=== PATIENT | female | born 1970 | race Caucasian/White ===

== ENCOUNTER 2020-11-30 06:28 | Day surgery (SDC) | payer OTHER ==
[~2020-11-30] VITALS: Ht 154.9 cm; Wt 85.0 kg
[2020-11-30] MEDS ORDERED: LIDOCAINE 2% 30 ML JELLY TP ONE (06:29)
[2020-11-30] MEDS ORDERED: ALBUTEROL SULFATE 2.5 MG/0.5 ML NEB SOLUTION NEB ONE (06:29)
[2020-11-30] MEDS ORDERED: BENZOCAINE 20% 50 MCG/SPRAY 57 GM TP ONE (06:29)
[2020-11-30] MEDS ORDERED: SODIUM CHLORIDE 0.9% 1,000 ML ONE (06:39)
[2020-11-30] MEDS ORDERED: FentaNYL CITRATE PF 100 MCG/2 ML VIAL ONE (07:38)
[2020-11-30] MEDS ORDERED: MIDAZOLAM HCL 2 MG/2 ML VIAL ONE (07:38)
[2020-11-30] MEDS ORDERED: ARIP2TAB27 PO (08:00)
[2020-11-30] MEDS ORDERED: BACL10TA PO (08:00)
[2020-11-30] MEDS ORDERED: ALBU8HFA IH (08:00)
[2020-11-30] MEDS ORDERED: SODIUM CHLORIDE 0.9% 1,000 ML IV ONE (08:00)
[2020-11-30] MEDS ORDERED: HYD50 PO (08:09)
[2020-11-30] MEDS ORDERED: IPRA4AER IH (08:09)
[2020-11-30] MEDS ORDERED: PREG75 PO (08:09)
[2020-11-30] MEDS ORDERED: SACU1TAB PO (08:09)
[2020-11-30] MEDS ORDERED: FLUT16H NASAL (08:09)
[2020-11-30] MEDS ORDERED: BUSP15 PO (08:09)
[2020-11-30] MEDS ORDERED: HYDR-4072 PO (08:09)
[2020-11-30] MEDS ORDERED: FLUT1BLS IH (08:09)
[2020-11-30] MEDS ORDERED: UMEC62.5 PO (08:09)
[2020-11-30] MEDS ORDERED: NIZO2SH TP (08:09)
[2020-11-30] MEDS ORDERED: PROM118S5 PO (08:09)
[2020-11-30] MEDS ORDERED: BETA50CR5 TP (08:09)
[2020-11-30] MEDS ORDERED: FURO40 PO (08:09)
[2020-11-30] MEDS ORDERED: HYDR200T83 PO (08:09)
[2020-11-30] MEDS ORDERED: PRED10 PO (08:09)
[2020-11-30] MEDS ORDERED: DULO-8 PO (08:09)
[2020-11-30] MEDS ORDERED: CARV25 PO (08:09)
[2020-11-30] MEDS ORDERED: MONT-35 PO (08:09)
[2020-11-30] MEDS ORDERED: FAMO20 PO (08:09)
[2020-11-30] MEDS ORDERED: MethylPREDNISolone SOD SUCC 125 MG/2 ML VIAL IVP ONE (09:30)
[2020-11-30] MEDS ORDERED: MethylPREDNISolone SOD SUCC 125 MG/2 ML VIAL ONE (09:53)
[2020-11-30] MEDS ORDERED: OXYGEN THERAPY IH SCH (20:00)
== END 2020-11-30 11:40 | disposition home or self-care (01) ==
LOC: SURGERY 06:28
PROVIDERS: ATTEND Internal Medicine Critical Care Medicine
DX: J38.4 Edema of larynx (principal); B37.0 Candidal stomatitis; F17.210 Nicotine dependence, cigarettes, uncomplicated; J44.9 Chronic obstructive pulmonary disease, unspecified; I42.9 Cardiomyopathy, unspecified; I50.9 Heart failure, unspecified; K21.9 Gastro-esophageal reflux disease without esophagitis; M19.90 Unspecified osteoarthritis, unspecified site; I11.0 Hypertensive heart disease with heart failure; F41.9 Anxiety disorder, unspecified; F32.9 Major depressive disorder, single episode, unspecified; F42.9 Obsessive-compulsive disorder, unspecified; F42.8 Other obsessive-compulsive disorder; Z98.890 Other specified postprocedural states; Z90.710 Acquired absence of both cervix and uterus; Z79.899 Other long term (current) drug therapy
CPT/HCPCS: 31623; 31624; 71045; 87015; 87070; 87101; 87205; 87206; 87220; 88108; 88184; 88185; 88312; J2250; J2930; J3010; J7030; J7613

== ENCOUNTER 2024-10-11 06:56 | Day surgery (SDC) | payer MEDICARE, OTHER ==
[~2024-10-11] VITALS: Ht 154.9 cm; Wt 60.5 kg
[~2024-10-11 06:56] MED LIST: ALBU18HF12 IH; ARIP2TAB27 PO; BACL10TA PO; BETA50CR5 TP; BUSP15 PO; CARV25 PO; DULO60CA98 PO; FAMO20 PO; FLUT16SP NASAL; FLUT1BLS IH; FURO40TA6 PO; HYDR-4072 PO; HYDR-4584 PO; HYDR200T83 PO; IPRA4AER IH; KETO120S13 TP; MONT-35 PO; PRED-729 PO; PREG75 PO; PROM118S5 PO; SACU1TAB PO; UMEC62.5 PO
[2024-10-11] MEDS ORDERED: BENZOCAINE 20% 50 MCG/SPRAY 57 GM TP ONE (06:57)
[2024-10-11] MEDS ORDERED: LIDOCAINE 2% 11 ML JELLY TP ONE (06:57)
[2024-10-11] MEDS ORDERED: LIDOCAINE 4% 50 ML SOLUTION TP ONE (06:57)
[2024-10-11] MEDS ORDERED: ALBUTEROL SULFATE 2.5 MG/0.5 ML NEB SOLUTION NEB ONE (06:57)
[2024-10-11] MEDS ORDERED: SODIUM CHLORIDE 0.9% 1,000 ML ONE (06:58)
[2024-10-11] MEDS ORDERED: EMPA10TA3 PO (07:25)
[2024-10-11] MEDS ORDERED: TIRZ5PEN3 IM (07:25)
[2024-10-11] MEDS ORDERED: FentaNYL CITRATE PF 100 MCG/2 ML VIAL ONE (08:01)
[2024-10-11] MEDS ORDERED: MIDAZOLAM HCL 2 MG/2 ML VIAL ONE (08:01)
[2024-10-11] MEDS: SODIUM CHLORIDE 0.9% 1,000 ML IV ONE (08:26)
[2024-10-11 08:55] VITALS: PULSE 87; RESP 17; O2SAT 100
[2024-10-11] MEDS ORDERED: MethylPREDNISolone SOD SUCC 125 MG/2 ML VIAL ONE (09:27)
[2024-10-11] MEDS: MethylPREDNISolone SOD SUCC 125 MG/2 ML VIAL IVP ONE (09:31)
== END 2024-10-11 12:15 | disposition home or self-care (01) ==
LOC: SURGERY 06:56
PROVIDERS: ATTEND Internal Medicine Critical Care Medicine
DX: R05.3 Chronic cough (principal); R04.2 Hemoptysis; J38.4 Edema of larynx; B37.0 Candidal stomatitis; I42.9 Cardiomyopathy, unspecified; I50.9 Heart failure, unspecified; I11.0 Hypertensive heart disease with heart failure; Z79.899 Other long term (current) drug therapy; Z98.890 Other specified postprocedural states
CPT/HCPCS: 31623; 93005; 87206; 87101; 87220; 87070; 88108; 31624; 71045; 87015; J3010; J2250; J2919; J7030; J7613; Z7610